=== PATIENT | female | born 1995 | race Caucasian/White ===

== ENCOUNTER → 2018-01-05 | Outpatient (REF) | payer BC ==
[2015-05-12 10:48] VITALS: BMI 28.3
[~2018-01-05] MED LIST: FERR-53 PO; HYDR-317 PO; IBUP800T37 PO; NO HOME MEDS; PREN-119 PO
== END ==
LOC: ZZSENDIN 11:45
PROVIDERS: ATTEND Obstetrics & Gynecology
DX: O60.00 Preterm labor without delivery, unspecified trimester (principal)
CPT/HCPCS: 82731

== ENCOUNTER 2018-01-13 18:53 | Emergency (ER) | payer BC ==
[2015-05-12 10:48] VITALS: Wt 81.6 kg
--- NOTE | 2018-01-13 19:02 | ER Report ---
History and Physical Time Seen By MD: 19:02 Hx. of Stated Complaint: Pain to right upper abdomen/rib cage radiates into back. Patient is 36 weeks HPI/ROS CHIEF COMPLAINT: chest pain HISTORY OF PRESENT ILLNESS: This is a 22 year old female. She is 35 week . Having pain in the right chest, in the ribs below the breast and sternal area. Radiates to her back near the shoulder blade. Worsens with deep breaths, somewhat with movement. No pain with eating. No pain in the abdomen. No fevers or chills. No cough. No nausea or vomiting. Has been having contractions on and off. No nausea or vomiting. No reflux problems. Frequent urination without dysuria. Normal bowels. Allergies: Coded Allergies: No Known Drug Allergies (Unverified , 01/13/18) Home Meds Reported Medications Calcium Carbonate (TUMS) 300 Mg Tab.chew, 300 MG PO, TAB.CHEW 01/13/18 Acetaminophen (TYLENOL) 325 Mg Tablet, 325 MG PO, TAB 01/13/18 Discontinued Reported Medications Hydrocodone/Acetaminophen (Lortab 5-325 mg Tablet) 1 Each Tablet, 1 PO Q4-6H Y for PAIN LORTAB PRN SINCE HOSP. VISIT FOR BACK PAIN 05/09. 05/11/15 Vit/Iron Fumarate/Fa ( VITAMIN TABLET) 1 Each Tablet, 1 EACH PO DAILY 05/11/15 Discontinued Scripts Ferrous Sulfate (FERROUS SULFATE) 325 Mg Tablet, 1 TAB PO DAILY, #90 TAB 1 Refill Prov:ALLY CHOUDHARY MD 05/13/15 Ibuprofen (IBUPROFEN) 800 Mg Tablet, 800 MG PO Q8H, #30 TAB 0 Refills Prov:ALLY CHOUDHARY MD 05/13/15 Reviewed Nurses Notes: Yes Hx Smoking: No Smoking Status: Never Smoker Exposure to Second Hand Smoke?: No Constitutional Vital Sign - Last 24 Hours 01/13/18 01/13/18 01/13/18 01/13/18 18:56 19:00 19:08 19:23 Pulse 71 71 66 Resp 16 24 26 B/P (MAP) 147/90 145/89 (107) Pulse Ox 96 96 95 O2 Delivery Room Air 01/13/18 01/13/18 01/13/18 01/13/18 19:30 19:38 19:53 20:00 Pulse 68 68 Resp 23 20 B/P (MAP) 129/93 (105) 111/68 (82) Pulse Ox 96 95 01/13/18 01/13/18 01/13/18 20:08 20:13 22:12 Pulse 76 70 85 Resp 22 23 16 B/P (MAP) 132/85 (101) Pulse Ox 94 95 95 O2 Delivery Room Air Physical Exam General Appearance: The patient is alert. No acute distress. Eyes: Pupils are equal, round. No pallor, injection or icterus. ENT: Mucous membranes are moist. Normal oral mucosa. Neck: Supple and non tender. No lymphadenopathy. Respiratory: Lungs are clear to auscultation. There are no retractions or accessory muscle use. Does have some reproduced pain with deep breaths. Cardiovascular: Regular rate and rhythm. No murmurs, gallops or rubs. Normal capillary refill. Gastrointestinal: Gravid size seems consistent with dates. Abdomen is soft and non tender. Nondistended. Normal active bowel sounds. No costovertebral angle tenderness with percussion. Neurological: Alert and oriented x3. Skin: Warm and dry. No rashes. Musculoskeletal: Some pain reproduced with palpation over the sternum, right ribs and back near shoulder blade. Full range of motion. No tenderness in palpation of the cervical, thoracic and lumbar spine. DIFFERENTIAL DIAGNOSIS: After history and physical exam, differential diagnosis was considered for chest pain including but not limited to cardiac causes, pulmonary embolus, chest wall pain, pleural inflammation and pulmonary infectious causes. Medical Decision Making Data Points Result Diagram: 01/13/18190401/13/181904 Laboratory Hematology Test 01/13/18 19:05 Red Blood Count 4.87 M/uL (4.17-5.56) Mean Corpuscular Volume 72.5 fL (80.0-96.0) Mean Corpuscular Hemoglobin 24.0 pg (26.0-33.0) Mean Corpuscular Hemoglobin Concent 33.2 g/dL (32.0-36.0) Red Cell Distribution Width 15.2 % (11.5-14.5) Mean Platelet Volume 9.3 fL (7.2-11.1) Neutrophils (%) (Auto) 69.3 % (39.4-72.5) Lymphocytes (%) (Auto) 24.2 % (17.6-49.6) Monocytes (%) (Auto) 5.9 % (4.1-12.4) Eosinophils (%) (Auto) 0.4 % (0.4-6.7) Basophils (%) (Auto) 0.2 % (0.3-1.4) Nucleated RBC Relative Count (auto) 0.1 /100WBC Neutrophils # (Auto) 6.2 K/uL (2.0-7.4) Lymphocytes # (Auto) 2.2 K/uL (1.3-3.6) Monocytes # (Auto) 0.5 K/uL (0.3-1.0) Eosinophils # (Auto) 0.0 K/uL (0.0-0.5) Basophils # (Auto) 0.0 K/uL (0.0-0.1) Nucleated RBC Absolute Count (auto) 0.01 K/uL Sodium Level 135 mmol/L (137-145) Potassium Level 3.7 mmol/L (3.5-5.0) Chloride Level 104 mmol/L (98-107) Carbon Dioxide Level 20 mmol/L (22-31) Blood Urea Nitrogen 5 mg/dl (7-18) Creatinine 0.60 mg/dl (0.52-1.04) Glomerular Filtration Rate Calc > 60.0 Random Glucose 100 mg/dl (75-110) Calcium Level 9.3 mg/dl (8.4-10.2) Total Bilirubin 0.6 mg/dl (0.2-1.3) Aspartate Amino Transf (AST/SGOT) 32 U/L (0-35) Alanine Aminotransferase (ALT/SGPT) 28 U/L (0-56) Alkaline Phosphatase 142 U/L (0-126) Troponin I < 0.012 ng/ml C-Reactive Protein 1.8 mg/dl (<1.0) Total Protein 7.4 g/dl (6.3-8.2) Albumin 4.0 g/dl (3.5-5.0) Chemistry Test 01/13/18 19:05 White Blood Count 8.9 k/uL (4.5-11.0) Red Blood Count 4.87 M/uL (4.17-5.56) Hemoglobin 11.7 g/dL (12.0-16.0) Hematocrit 35.3 % (34.0-47.0) Mean Corpuscular Volume 72.5 fL (80.0-96.0) Mean Corpuscular Hemoglobin 24.0 pg (26.0-33.0) Mean Corpuscular Hemoglobin Concent 33.2 g/dL (32.0-36.0) Red Cell Distribution Width 15.2 % (11.5-14.5) Platelet Count 287 K/uL (150-450) Mean Platelet Volume 9.3 fL (7.2-11.1) Neutrophils (%) (Auto) 69.3 % (39.4-72.5) Lymphocytes (%) (Auto) 24.2 % (17.6-49.6) Monocytes (%) (Auto) 5.9 % (4.1-12.4) Eosinophils (%) (Auto) 0.4 % (0.4-6.7) Basophils (%) (Auto) 0.2 % (0.3-1.4) Nucleated RBC Relative Count (auto) 0.1 /100WBC Neutrophils # (Auto) 6.2 K/uL (2.0-7.4) Lymphocytes # (Auto) 2.2 K/uL (1.3-3.6) Monocytes # (Auto) 0.5 K/uL (0.3-1.0) Eosinophils # (Auto) 0.0 K/uL (0.0-0.5) Basophils # (Auto) 0.0 K/uL (0.0-0.1) Nucleated RBC Absolute Count (auto) 0.01 K/uL Glomerular Filtration Rate Calc > 60.0 Calcium Level 9.3 mg/dl (8.4-10.2) Total Bilirubin 0.6 mg/dl (0.2-1.3) Aspartate Amino Transf (AST/SGOT) 32 U/L (0-35) Alanine Aminotransferase (ALT/SGPT) 28 U/L (0-56) Alkaline Phosphatase 142 U/L (0-126) Troponin I < 0.012 ng/ml C-Reactive Protein 1.8 mg/dl (<1.0) Total Protein 7.4 g/dl (6.3-8.2) Albumin 4.0 g/dl (3.5-5.0) EKG/Imaging EKG Interpretation 12 lead EKG: Rhythm: Normal sinus rhythm, rate 70 [place]: normal QRS: normal ST segments: normal Imaging CHEST SINGLE AP 01/13/2018 19:18 hours. HISTORY: Chest pain. . COMPARISON: CT chest, abdomen, and pelvis 06/08/2014. TECHNIQUE: Portable AP view of the chest. FINDINGS: Tubes/lines/hardware: There are external chest leads. Pulmonary: Lungs are clear. There is no pneumothorax or pleural effusion. Cardiomediastinal: Cardiac and mediastinal silhouettes are within normal limits. Bones/soft tissues: No acute osseous abnormality. The visible abdomen is normal. IMPRESSION: 1. No acute cardiopulmonary process. Report Dictated By: Rae Ernst at 01/13/2018 8:09 PM EXAMINATION: CTA of the chest with IV contrast HISTORY: Chest pain. COMPARISON: CT of the chest from 06/08/2014. Chest radiograph from the same day. TECHNIQUE: Pulmonary embolus protocol - Thin-slice axial imaging of the chest was performed during maximal pulmonary arterial opacification with intravenous nonionic iodinated contrast. 3D coronal slab MIPs and 2D reconstructions in the coronal and sagittal planes were performed to aid in pulmonary embolus detection. Insurance Writer images have been stored on PACS. CONTRAST: 75 mL of IV Isovue-370 One of the following dose optimization techniques was utilized in the performance of this exam: Automated exposure control; adjustment of the mA and/ or kV according to the patient's size; or use of an iterative reconstruction technique. Specific details can be referenced in the facility's radiology CT exam operational policy. FINDINGS: CTA CHEST: Please note that this exam is optimized for assessment of the pulmonary arteries and is not intended as a diagnostic study of the thoracic aorta, coronary arteries or venous structures. Angiographic Findings: Pulmonary arteries: There are no filling defects in the main, right, left, lobar , segmental or visualized sub-segmental branches of the pulmonary arterial system. Other vasculature: Negative. Additional non-angiographic findings: Lungs / Pleura: There is a 3.5 mm noncalcified pulmonary nodule in the left lung apex, slightly larger compared with previous examination. Mediastinum / Freda: Small sliding hiatal hernia. Heart / Pericardium: Mild pericardial fluid. Musculoskeletal / Body wall: Negative. Lymph node assessment: Negative. Upper abdomen: Gravid uterus. Partially visualized right renal collecting system appears at least mildly dilated. The right adrenal gland appears mildly thickened diffusely. Lower neck: Negative. IMPRESSION: No evidence of pulmonary embolism. Small sliding hiatal hernia. A 3.5 mm noncalcified pulmonary nodule at the left lung apex appears slightly larger compared with previous chest CT. Consider follow-up chest CT in 6-12 months to assess for stability or growth. Gravid uterus. Partially visualized right renal collecting system appears at least mildly dilated. The right adrenal gland is mildly diffusely thickened suggestive of adrenal hyperplasia. Report Dictated By: Ashok Patel MD at 01/13/2018 9:14 PM ED Course/Re-evaluation Clinical Indication for ER IV: IV Access ED Course Initial labs were unremarkable. Chest x-ray negative. Discussed these results. This is likely chest wall pain based on my exam however cannot entirely rule out pulmonary embolism at this point. We talked about the risks and benefits of doing CT scan. After our discussion, the patient is electing to go ahead with a CT scan of the chest. This was done and showed no signs of pulmonary embolism. There is a pulmonary nodule and some mild changes in the adrenal and renal collecting system, nonspecific and likely incidental or due to the . She will follow up with the women's clinic on Tuesday. I encouraged her to rest and increase her fluid intake over the weekend. Decision to Disposition Date: Jan 13, 2018 Decision to Disposition Time: 22:08 Depart Departure Latest Vital Signs Vital Signs Date Time Temp Pulse Resp B/P (MAP) Pulse Ox O2 Delivery O2 Flow Rate FiO2 01/13/18 22:12 85 16 132/85 (101) 95 Room Air Impression: Primary Impression: Chest wall pain Condition: Improved Disposition: HOME OR SELF-CARE Patient Instructions: Chest Wall Pain (ED) Additional Instructions: Increase fluid intake and rest over the weekend. Take Tylenol as needed for pain. Follow-up with the [facility] on Tuesday. CHOLO HOBBS MD Jan 13, 2018 19:02
[2018-01-13 19:31] LABS: PLATELET COUNT, AUTOMATED 287 K/uL (150-450)
--- NOTE | 2018-01-13 19:41 | EKG ---
FACILITY: [facility] PATIENT NAME: TEENA CARBALLO : [id number] MR: [id number] V: [id number] EXAM DATE: ORDERING PHYSICIAN: CHOLO HOBBS TECHNOLOGIST: SHELDON Altman Reason : CHEST PAIN Blood Pressure : / mmHG Vent. Rate : 070 BPM Atrial Rate : 070 BPM P-R Int : 120 ms QRS Dur : 086 ms QT Int : 380 ms P-R-T Axes : 020 051 015 degrees QTc Int : 410 ms Normal sinus rhythm with sinus arrhythmia Normal ECG No previous ECGs available Confirmed by SAMARIA NELSON ([id number]) on 01/13/2018 8:07:20 PM Referred By: Confirmed By:SAMARIA NELSON
--- NOTE | 2018-01-13 20:13 | RADIOLOGY IMAGING REPORT ---
[place] [facility] [place] NAME: Chloe Middleton : 1995 MR: [id number] V: [id number] EXAM DATE: ORDERING PHYSICIAN: CHOLO HOBBS TECHNOLOGIST: Location: [facility] - [place], [place] Patient: Chloe Middleton : 1995 Visit/Account:[id number] Date of Sevice: 01/13/2018 CHEST SINGLE AP 01/13/2018 19:18 hours. HISTORY: Chest pain. . COMPARISON: CT chest, abdomen, and pelvis 06/08/2014. TECHNIQUE: Portable AP view of the chest. FINDINGS: Tubes/lines/hardware: There are external chest leads. Pulmonary: Lungs are clear. There is no pneumothorax or pleural effusion. Cardiomediastinal: Cardiac and mediastinal silhouettes are within normal limits. Bones/soft tissues: No acute osseous abnormality. The visible abdomen is normal. IMPRESSION: 1. No acute cardiopulmonary process. Report Dictated By: Rae Ernst at 01/13/2018 8:09 PM Report E-Signed By: Rae Ernst at 01/13/2018 8:09 PM WSN:[id number]
[2018-01-13] MEDS ORDERED: IOPAMIDOL 76% 75 ML INFUS BTL 75 ML ONE (20:42)
[2018-01-13] MEDS ORDERED: NS(*) 0.9% 50 ML BAG 50 ML ONE (20:42)
--- NOTE | 2018-01-13 21:48 | RADIOLOGY IMAGING REPORT ---
FACILITY: [facility] - [place] PATIENT NAME: Chloe Middleton : 1995 MR: [id number] V: [id number] EXAM DATE: [id number] ORDERING PHYSICIAN: CHOLO HOBBS TECHNOLOGIST: Location: [facility] Patient: Chloe Middleton : 1995 Visit/Account:[id number] Date of Sevice: 01/13/2018 EXAMINATION: CTA of the chest with IV contrast HISTORY: Chest pain. COMPARISON: CT of the chest from 06/08/2014. Chest radiograph from the same day. TECHNIQUE: Pulmonary embolus protocol - Thin-slice axial imaging of the chest was performed during maximal pulmonary arterial opacification with intravenous nonionic iodinated contrast. 3D coronal sla b MIPs and 2D reconstructions in the coronal and sagittal planes were performed to aid in pulmonary e mbolus detection. Aircraft Technician images have been stored on PACS. CONTRAST: 75 mL of IV Isovue-370 One of the following dose optimization techniques was utilized in the performance of this exam: Autom ated exposure control; adjustment of the mA and/or kV according to the patient's size; or use of an i terative reconstruction technique. Specific details can be referenced in the facility's radiology C T exam operational policy. FINDINGS: CTA CHEST: Please note that this exam is optimized for assessment of the pulmonary arteries and is not intended as a diagnostic study of the thoracic aorta, coronary arteries or venous structures. Angiographic Findings: Pulmonary arteries: There are no filling defects in the main, right, left, lobar, segmental or visual ized sub-segmental branches of the pulmonary arterial system. Other vasculature: Negative. Additional non-angiographic findings: Lungs / Pleura: There is a 3.5 mm noncalcified pulmonary nodule in the left lung apex, slightly lar sandy compared with previous examination. Mediastinum / Freda: Small sliding hiatal hernia. Heart / Pericardium: Mild pericardial fluid. Musculoskeletal / Body wall: Negative. Lymph node assessment: Negative. Upper abdomen: Gravid uterus. Partially visualized right renal collecting system appears at least mi ldly dilated. The right adrenal gland appears mildly thickened diffusely. Lower neck: Negative. IMPRESSION: No evidence of pulmonary embolism. Small sliding hiatal hernia. A 3.5 mm noncalcified pulmonary nodule at the left lung apex appears slightly larger compared with pr evious chest CT. Consider follow-up chest CT in 6-12 months to assess for stability or growth. Gravid uterus. Partially visualized right renal collecting system appears at least mildly dilated. The right adrenal gland is mildly diffusely thickened suggestive of adrenal hyperplasia. Report Dictated By: Ashok Patel MD at 01/13/2018 9:14 PM Report E-Signed By: Ashok Patel MD at 01/13/2018 9:43 PM [id number]
[2018-01-13 22:12] VITALS: BP 132/85
[2018-01-13] MEDS ORDERED: ACET-1966 PO (22:52)
[2018-01-13] MEDS ORDERED: CALC-521 PO (22:52)
== END 2018-01-13 22:16 | disposition home or self-care (01) ==
LOC: ER 19:08
DX: R07.89 Other chest pain (principal); Z79.899 Other long term (current) drug therapy
CPT/HCPCS: 71045; 71275; 84484; 85025; 86140; 93005; 99285; J7050; Q9967; 82040; 82247; 82310; 82374; 82435; 82565; 82947; 84075; 84132; 84155; 84295; 84450; 84460; 84520

== ENCOUNTER 2018-01-13 22:19 | Outpatient (CLI) | payer BC ==
[~2018-01-13] VITALS: Ht 160 cm; Wt 81.6 kg
[2018-01-13] MEDS ORDERED: LR(*) 1000 ML BAG 1,000 ML IV PRN (22:21)
[2018-01-13 22:30] VITALS: BP 132/81
[2018-01-13] MEDS ORDERED: CALC-521 PO (22:52)
[2018-01-13] MEDS ORDERED: ACET-1966 PO (22:52)
[2018-01-13 22:53] VITALS: Ht 160 cm; Wt 81.6 kg
[2018-01-13] MEDS ORDERED: FAMOTIDINE 20 MG TAB PO ONE (23:25)
[2018-01-13] MEDS ORDERED: ACETAMINOPHEN 500 MG TAB PO ONE (23:25)
[2018-01-14 00:47] VITALS: BP 133/73
== END 2018-01-14 00:34 | disposition home or self-care (01) ==
LOC: L&D 22:19 → UNDOADMOB 22:19 → INTOOBSV 22:19 → OB 22:19 → UNDODISOB 01-14 00:34 → L&D 01-14 00:34
PROVIDERS: ATTEND Obstetrics & Gynecology
DX: O26.893 Other specified pregnancy related conditions, third trimester (principal); Z3A.36 36 weeks gestation of pregnancy
CPT/HCPCS: 99213; G0378; G0379

== ENCOUNTER → 2018-01-26 | Outpatient (REF) | payer BC ==
[2018-01-13 22:53] VITALS: BMI 31.9
[~2018-01-26] MED LIST changes: +ACET-1966 PO; +CALC-521 PO
== END ==
LOC: ZZSENDIN 12:35
PROVIDERS: ATTEND Physician Assistant
DX: O42.90 Premature rupture of membranes, unspecified as to length of time between rupture and onset of labor, unspecified weeks of gestation (principal)
CPT/HCPCS: 84112

== ENCOUNTER 2018-01-27 19:24 | Observation (INO) | payer BC ==
[2018-01-13 22:53] VITALS: BMI 31.9
[2018-01-27] MEDS ORDERED: FAMOTIDINE(*) 20MG/50ML PREMIX 50 ML IVPB PRN (20:02)
[2018-01-27] MEDS ORDERED: OXYTOCIN 30 UNIT/D5LR 500 ML 500 ML IV PRN (20:02)
[2018-01-27] MEDS ORDERED: ceFAZolin(*) 2GM/D5W 50ML 50 ML IVPB PRN (20:02)
[2018-01-27] MEDS ORDERED: fentaNYL CITR 100 MCG/2 ML AMP IVP PRN (20:05)
[2018-01-27] MEDS ORDERED: METOCLOPRAMIDE 10 MG/2 ML SDV IVP PRN (20:05)
[2018-01-27] MEDS ORDERED: LIDOCAINE 1% LOCAL 300 MG/30ML INJ PRN (20:05)
[2018-01-27] MEDS ORDERED: cefOXitin/DEX(*) 2GM/50ML PREM 50 ML IVPB PRN (20:05)
[2018-01-27] MEDS ORDERED: LIDOCAINE/SOD BICARB 8.4% SYR SC PRN (20:05)
[2018-01-27] MEDS ORDERED: OXYTOCIN 30 UNIT/D5LR 500 ML 500 ML ONE (20:21)
[2018-01-27] MEDS ORDERED: LR(*) 1000 ML BAG 2,000 ML ONE (20:21)
[2018-01-27] MEDS: LR(*) 1000 ML BAG 1,000 ML IV SCH (20:24)
[2018-01-27 20:26] LABS: PLATELET COUNT, AUTOMATED 275 K/uL (150-450)
[2018-01-27 20:30] VITALS: BP 116/73
[2018-01-27] MEDS ORDERED: PENICILLIN G 5 MILLUN/100 ML 100 ML IVPB ONE (20:30)
[2018-01-27] MEDS ORDERED: TERBUTALINE SULF 1 MG/ML VIAL SC ONE (22:35)
[2018-01-28] MEDS ORDERED: PENICILLIN G 2.5 MILLUN/100 ML 100 ML IVPB SCH
[2018-01-28] MEDS: LR(*) 1000 ML BAG 1,000 ML IV SCH ×2 (02:56→06:56)
[2018-01-28] MEDS: PENICILLIN G 2.5 MILLUN/100 ML 100 ML IVPB SCH ×2 (03:36→08:05)
[2018-01-28] MEDS ORDERED: PREN-127 PO (03:51)
--- NOTE | 2018-01-28 09:14 | History & Physical ---
History of Present Illness Age of Patient: 22 : 2 Para or TPAL: 1001 EDC per LMP: Feb 15, 2018 EDC per U/S: Feb 11, 2018 Estimated Gestational Age: 37.3 Chief Complaint Pelvic pressure. History of Present Illness Admitted in early term with pelvic pressure, and found to have contractions Q 2- 3 minutes on monitor. Observed overnight, and started on IV Pen G protocol, since it appeared that she was in labor with +GBS screen. After there was no cervical change (after initial exam of 5 cm) over a few hours, she was given a single dose of Terbutaline 0.25 mg subcutaneously. Contractions ceased, and re mained only occasional overnight.She's now feeling some pelvic pressure and some contractions, but monitoring shows no significant uterine activity. No complications of this . record reviewed. History Patient's Blood Type: B Positive Rubella Status: Immune Group B Strep Screen: Positive (01/12/18) Obstetrical History: Previous term uncomplicated vaginal . Past Medical History: Unremarkable. Allergies: Coded Allergies: No Known Drug Allergies (Unverified , 01/13/18) Social History: Single, FOC present and supportive. Works at [employer]. Denies use of tobacco, alcohol, or illicit drugs. Med Rec Home Meds Discontinued Reported Medications Vits W-Ca,Fe,Fa(<1MG) ( VITAMINS) 1 Each Tablet, 1 EACH PO DAILY, TAB 01/28/18 Calcium Carbonate (TUMS) 300 Mg Tab.chew, 300 MG PO, TAB.CHEW 01/13/18 Acetaminophen (TYLENOL) 325 Mg Tablet, 325 MG PO, TAB 01/13/18 Review of Systems All Systems Reviewed/Normal: Yes, Except as Noted Exam General Exam Vital Signs Vital Signs Date Time Temp Pulse Resp B/P (MAP) Pulse Ox O2 Delivery O2 Flow Rate FiO2 01/27/18 20:30 97.8 61 14 116/73 (87) General Apperance: Alert/Awake/No Acute Distress (although she notes contraction pain is up to 9/10) Neuro: No Gross deficits Eyes: Normal Extraocular Movement & Vison ENT: Normal, Moist Mucous Membranes Neck: No Masses Cardiovascular: Regular Rate and Rhythm Respiratory: No Respiratory Distress, Clear to Auscultation Abdomen: Gravid - Non-Tender : Normal; No CVA Tenderness Musculoskeletal: No Weakness/Pain Extremities: No Cyanosis,Clubbing or Edema, Reflexes (2+/4 and symmetric); No Tender Calves Integumentary: Skin Intact without Lesions or Rash Psychological: Alert & Oriented X3, Appropriate Mood & Affect Cervical Dialation: 4.5 Cervical Effacement (%): 60 Cervical Consistency: Soft Cervical Position: Posterior Station: -3 Presentation: Vertex Fetus Heart Tones: 140 Heart Tone Variabilty: Moderate FHT Accelerations: Present FHT Decelerations: None FHT Category: I Medical Decision Making Data Points Result Diagram: 01/27/182017 VTE Prophylasis: Adult Pharmacological Contraindicati: Pt at Low Risk for VTE Mechanical Contraindications: Pt at Low Risk for VTE Assessment and Plan Problems: (1) False labor after 37 weeks of gestation without delivery Assessment & Plan: Patient feels OK in being discharged home. Discussed labor precautions. She lives only a few minutes from the hospital. She will keep her appointment at [facility] in the coming week. (2) with 37 weeks completed gestation Copies to: ALLY CHOUDHARY MD ; ARIC TESFAYE MD Jan 28, 2018 08:58
== END 2018-01-28 08:58 | disposition home or self-care (01) ==
LOC: OB 19:24 → UNDODISOB 01-28 08:58
PROVIDERS: ADMIT Obstetrics & Gynecology; ATTEND Obstetrics & Gynecology
DX: O47.1 False labor at or after 37 completed weeks of gestation (principal); Z3A.37 37 weeks gestation of pregnancy
CPT/HCPCS: 36415; 85025; 86850; 86900; 86901; 96372; G0378; G0379; J2540; J3105; J7120

== ENCOUNTER 2018-02-01 05:24 | Inpatient (IN) | payer BC ==
[~2018-02-01] VITALS: Ht 160 cm; Wt 81.6 kg
[~2018-02-01 05:24] MED LIST changes: +PREN-127 PO
[2018-02-01] MEDS ORDERED: PENICILLIN G 5 MILLUN/100 ML 100 ML IVPB ONE (05:25)
[2018-02-01] MEDS ORDERED: FAMOTIDINE(*) 20MG/50ML PREMIX 50 ML IVPB PRN (05:25)
[2018-02-01] MEDS ORDERED: LIDOCAINE/SOD BICARB 8.4% SYR SC PRN (05:25)
[2018-02-01] MEDS ORDERED: LR(*) 1000 ML BAG 1,000 ML IV PRN ×2 (05:25→08:50)
[2018-02-01] MEDS ORDERED: cefOXitin/DEX(*) 2GM/50ML PREM 50 ML IVPB PRN (05:25)
[2018-02-01] MEDS ORDERED: fentaNYL CITR 100 MCG/2 ML AMP IVP PRN (05:25)
[2018-02-01] MEDS ORDERED: OXYTOCIN 30 UNIT/D5LR 500 ML 500 ML IV PRN (05:25)
[2018-02-01] MEDS ORDERED: METOCLOPRAMIDE 10 MG/2 ML SDV IVP PRN (05:25)
[2018-02-01] MEDS ORDERED: ACETAMINOPHEN 500 MG TAB PO PRN (05:25)
[2018-02-01] MEDS ORDERED: TERBUTALINE SULF 1 MG/ML VIAL SUBQ PRN (05:25)
[2018-02-01] MEDS ORDERED: ONDANSETRON 4 MG/2 ML VIAL IVP PRN (05:25)
[2018-02-01] MEDS ORDERED: LIDOCAINE 1% LOCAL 300 MG/30ML INJ PRN (05:25)
[2018-02-01 06:10] VITALS: BP 142/76; Ht 160 cm; Wt 81.6 kg
[2018-02-01 06:29] LABS: PLATELET COUNT, AUTOMATED 215 K/uL (150-450)
[2018-02-01] MEDS ORDERED: PREN-127 PO (08:08)
[2018-02-01] MEDS ORDERED: BUPIVACAINE 0.25% MPF INJ EPI PRN (08:50)
[2018-02-01] MEDS ORDERED: FENTANYL/ROPIVACAINE 100 ML BAG EPI PRN (08:50)
[2018-02-01] MEDS ORDERED: LIDOCAINE/PF 2% 200MG/10ML AMP 200 MG/10 ML AMPUL EPI PRN (08:50)
[2018-02-01] MEDS ORDERED: fentaNYL CITR 100 MCG/2 ML AMP IT PRN (08:50)
[2018-02-01] MEDS ORDERED: BUPIVACAINE 0.5% INJ 30ML VIAL EPI PRN (08:50)
[2018-02-01] MEDS ORDERED: LIDO/EPI 2% MPF 1:200,000 20ML EPI PRN (08:50)
[2018-02-01] MEDS ORDERED: EPIDURAL KEYS XX PRN (09:00)
[2018-02-01] MEDS ORDERED: PENICILLIN G 2.5 MILLUN/100 ML 100 ML IVPB SCH (10:00)
--- NOTE | 2018-02-01 10:37 | History & Physical ---
History of Present Illness Age of Patient: 22 : 2 Para or TPAL: 1 EDC per LMP: Feb 15, 2018 Estimated Gestational Age: 38.0 Chief Complaint IOL History of Present Illness Presents for planned IOL due to LGA, GBS positive and advanced dilation. Presented to clinic yesterday with normal pressures and no proteinuria but history of LGA baby (92%ile on 01/19/18) and advanced dilation (5cm). also complicated by threatened PTL and prior mild bilateral hydronephrosis that remained stable. She had MFM consult and was recommended to evaluate the . Upon arrival here here pressures were mildly elevated and pre-ecl ampsia labs done showing mild elevation in her liver enzymes, normal platelets, no proteinuria on spot check. Past Medical, Surgical, Family and Obstetric Histories reviewed. Please see ACOG chart. History Patient's Blood Type: B Positive Rubella Status: Immune Group B Strep Screen: Positive Obstetrical History: as per HPI; otherwise prior at 38 weeks, 6#15oz. Past Medical History: neg Allergies: Coded Allergies: No Known Drug Allergies (Unverified , 01/13/18) Social History: Single, FOC present and supportive. Works at [employer]. Denies use of tobacco, alcohol, or illicit drugs. Med Rec Home Meds Reported Medications Vits W-Ca,Fe,Fa(<1MG) ( VITAMINS) 1 Each Tablet, 1 EACH PO DAILY, TAB 02/01/18 Discontinued Reported Medications Vits W-Ca,Fe,Fa(<1MG) ( VITAMINS) 1 Each Tablet, 1 EACH PO DAILY, TAB 01/28/18 Calcium Carbonate (TUMS) 300 Mg Tab.chew, 300 MG PO, TAB.CHEW 01/13/18 Acetaminophen (TYLENOL) 325 Mg Tablet, 325 MG PO, TAB 01/13/18 Review of Systems All Systems Reviewed/Normal: Yes, Except as Noted Exam General Exam Vital Signs Vital Signs Date Time Temp Pulse Resp B/P (MAP) Pulse Ox O2 Delivery O2 Flow Rate FiO2 02/01/18 06:10 97.2 87 22 142/76 (98) 97 Room Air General Apperance: Alert/Awake/No Acute Distress Neuro: No Gross deficits Eyes: Normal Extraocular Movement & Vison Cardiovascular: Regular Rate and Rhythm Respiratory: No Respiratory Distress Abdomen: Soft, Non-Tender, Non-Distended, Gravid - Non-Tender Extremities: No Cyanosis,Clubbing or Edema Integumentary: Skin Intact without Lesions or Rash Psychological: Alert & Oriented X3, Appropriate Mood & Affect Vaginal Discharge/Fluid?: Bloody Show, Clear Fluid (on AROM; large amount) Cervical Dialation: 6 Cervical Effacement (%): 100 Cervical Consistency: Soft Cervical Position: Anterior Station: -2 Presentation: Vertex Uterine Contractions(Q min): 3 Uterine Contraction Strength: Moderate Fetus Heart Tone Variabilty: Moderate FHT Accelerations: 15X15 FHT Decelerations: None FHT Category: I Medical Decision Making Data Points Result Diagram: 02/01/18 0610 02/01/18 0610 Hematology Test 02/01/18 06:10 02/01/18 06:30 Red Blood Count 4.66 M/uL (4.17-5.56) Mean Corpuscular Volume 72.2 fL (80.0-96.0) Mean Corpuscular Hemoglobin 23.6 pg (26.0-33.0) Mean Corpuscular Hemoglobin Concent 32.7 g/dL (32.0-36.0) Red Cell Distribution Width 15.7 % (11.5-14.5) Mean Platelet Volume 9.3 fL (7.2-11.1) Neutrophils (%) (Auto) 64.9 % (39.4-72.5) Lymphocytes (%) (Auto) 27.8 % (17.6-49.6) Monocytes (%) (Auto) 5.7 % (4.1-12.4) Eosinophils (%) (Auto) 1.2 % (0.4-6.7) Basophils (%) (Auto) 0.4 % (0.3-1.4) Nucleated RBC Relative Count (auto) 0.3 /100WBC Neutrophils # (Auto) 5.6 K/uL (2.0-7.4) Lymphocytes # (Auto) 2.4 K/uL (1.3-3.6) Monocytes # (Auto) 0.5 K/uL (0.3-1.0) Eosinophils # (Auto) 0.1 K/uL (0.0-0.5) Basophils # (Auto) 0.0 K/uL (0.0-0.1) Nucleated RBC Absolute Count (auto) 0.02 K/uL Peripheral Blood Smear No Y/N Sodium Level 135 mmol/L (137-145) Potassium Level 4.1 mmol/L (3.5-5.0) Chloride Level 104 mmol/L (98-107) Carbon Dioxide Level 22 mmol/L (22-31) Blood Urea Nitrogen 8 mg/dl (7-18) Creatinine 0.60 mg/dl (0.52-1.04) Glomerular Filtration Rate Calc > 60.0 Random Glucose 66 mg/dl (75-110) Uric Acid 6.0 mg/dl (2.5-7.5) Calcium Level 9.1 mg/dl (8.4-10.2) Total Bilirubin 0.5 mg/dl (0.2-1.3) Aspartate Amino Transf (AST/SGOT) 45 U/L (0-35) Alanine Aminotransferase (ALT/SGPT) 58 U/L (0-56) Alkaline Phosphatase 137 U/L (0-126) Lactate Dehydrogenase 501 U/L (0-590) Total Protein 6.3 g/dl (6.3-8.2) Albumin 3.4 g/dl (3.5-5.0) HIV (1&2) Antibody Negative (NEGATIVE) Urine Color [place] Urine Clarity Cloudy Urine pH 6.0 pH (4.8-9.5) Urine Specific [place] 1.018 Urine Protein 30 mg/dL (NEGATIVE) Urine Glucose (UA) Negative mg/dL (NEGATIVE) Urine Ketones Negative mg/dL (NEGATIVE) Urine Blood Negative (NEGATIVE) Urine Nitrite Negative (NEGATIVE) Urine Bilirubin Negative (NEGATIVE) Urine Urobilinogen 2.0 mg/dL (0.2-1.9) Urine Leukocyte Esterase Large (NEGATIVE) Urine RBC 9 /HPF (0-2/HPF) Urine WBC 61 /HPF (0-5/HPF) Urine Squamous Epithelial Cells Many /LPF (</=FEW) Urine Bacteria Few /HPF (NONE-FEW) Urine Mucus Few /HPF (NONE-FEW) Urine Random Creatinine 181.2 mg/dl Urine Random Total Protein 17 mg/dl (<11) Chemistry Test 02/01/18 06:10 02/01/18 06:30 White Blood Count 8.6 k/uL (4.5-11.0) Red Blood Count 4.66 M/uL (4.17-5.56) Hemoglobin 11.0 g/dL (12.0-16.0) Hematocrit 33.6 % (34.0-47.0) Mean Corpuscular Volume 72.2 fL (80.0-96.0) Mean Corpuscular Hemoglobin 23.6 pg (26.0-33.0) Mean Corpuscular Hemoglobin Concent 32.7 g/dL (32.0-36.0) Red Cell Distribution Width 15.7 % (11.5-14.5) Platelet Count 215 K/uL (150-450) Mean Platelet Volume 9.3 fL (7.2-11.1) Neutrophils (%) (Auto) 64.9 % (39.4-72.5) Lymphocytes (%) (Auto) 27.8 % (17.6-49.6) Monocytes (%) (Auto) 5.7 % (4.1-12.4) Eosinophils (%) (Auto) 1.2 % (0.4-6.7) Basophils (%) (Auto) 0.4 % (0.3-1.4) Nucleated RBC Relative Count (auto) 0.3 /100WBC Neutrophils # (Auto) 5.6 K/uL (2.0-7.4) Lymphocytes # (Auto) 2.4 K/uL (1.3-3.6) Monocytes # (Auto) 0.5 K/uL (0.3-1.0) Eosinophils # (Auto) 0.1 K/uL (0.0-0.5) Basophils # (Auto) 0.0 K/uL (0.0-0.1) Nucleated RBC Absolute Count (auto) 0.02 K/uL Peripheral Blood Smear No Y/N Glomerular Filtration Rate Calc > 60.0 Uric Acid 6.0 mg/dl (2.5-7.5) Calcium Level 9.1 mg/dl (8.4-10.2) Total Bilirubin 0.5 mg/dl (0.2-1.3) Aspartate Amino Transf (AST/SGOT) 45 U/L (0-35) Alanine Aminotransferase (ALT/SGPT) 58 U/L (0-56) Alkaline Phosphatase 137 U/L (0-126) Lactate Dehydrogenase 501 U/L (0-590) Total Protein 6.3 g/dl (6.3-8.2) Albumin 3.4 g/dl (3.5-5.0) HIV (1&2) Antibody Negative (NEGATIVE) Urine Color [place] Urine Clarity Cloudy Urine pH 6.0 pH (4.8-9.5) Urine Specific [place] 1.018 Urine Protein 30 mg/dL (NEGATIVE) Urine Glucose (UA) Negative mg/dL (NEGATIVE) Urine Ketones Negative mg/dL (NEGATIVE) Urine Blood Negative (NEGATIVE) Urine Nitrite Negative (NEGATIVE) Urine Bilirubin Negative (NEGATIVE) Urine Urobilinogen 2.0 mg/dL (0.2-1.9) Urine Leukocyte Esterase Large (NEGATIVE) Urine RBC 9 /HPF (0-2/HPF) Urine WBC 61 /HPF (0-5/HPF) Urine Squamous Epithelial Cells Many /LPF (</=FEW) Urine Bacteria Few /HPF (NONE-FEW) Urine Mucus Few /HPF (NONE-FEW) Urine Random Creatinine 181.2 mg/dl Urine Random Total Protein 17 mg/dl (<11) Urinalysis Test 02/01/18 06:30 Urine Color [place] Urine Clarity Cloudy Urine pH 6.0 pH (4.8-9.5) Urine Specific [place] 1.018 Urine Protein 30 mg/dL (NEGATIVE) Urine Glucose (UA) Negative mg/dL (NEGATIVE) Urine Ketones Negative mg/dL (NEGATIVE) Urine Blood Negative (NEGATIVE) Urine Nitrite Negative (NEGATIVE) Urine Bilirubin Negative (NEGATIVE) Urine Urobilinogen 2.0 mg/dL (0.2-1.9) Urine Leukocyte Esterase Large (NEGATIVE) Urine RBC 9 /HPF (0-2/HPF) Urine WBC 61 /HPF (0-5/HPF) Urine Squamous Epithelial Cells Many /LPF (</=FEW) Urine Bacteria Few /HPF (NONE-FEW) Urine Mucus Few /HPF (NONE-FEW) Urine Random Creatinine 181.2 mg/dl Urine Random Total Protein 17 mg/dl (<11) VTE Prophylasis: Adult Deep Vein Thrombosis/Pulmonary: No Pharmacological Contraindicati: Pt at Low Risk for VTE Mechanical Contraindications: Pt at Low Risk for VTE Assessment and Plan Problems: (1) LGA (large for gestational age) fetus affecting management of mother (2) Gestational [-induced] hypertension without significant proteinuria, complicating childbirth Assessment & Plan: Monitoring pressures. IOL to proceed with pitocin. (3) 38 weeks gestation of Status: Resolved (4) Group B streptococcal carriage complicating Assessment & Plan: Penicillin prophylaxis Problem Qualifiers (1) LGA (large for gestational age) fetus affecting management of mother: Fetus number: single or unspecified fetus Trimester: third trimester Qualified Codes: O36.63X0 - Maternal care for excessive growth, third trimester, not applicable or unspecified ALLY CHOUDHARY MD Feb 01, 2018 10:37
--- NOTE | 2018-02-01 11:59 | Anesthesia OB Pre-Anes Eval ---
History of Present Illness Anesthesia Start Time: 10:48 OB Anesthesia Diagnosis: induction - medical EDC: Feb 15, 2018 : 2 Para: 1 Pain Ratin Heart Tones: 148 Result Diagram: 02/01/18 0610 02/01/18 0610 Height (Inches): 63.00 Weight (Pounds): 180 BMI Calculated: 31.88 Past Medical History Medical History: no pertinent history Surgical History: no surgical history Previous Anesthesia: epidural Attended Childbirth Classes?: No Hx Anesthesia Reactions: No Hx Family Anesthesia Reaction: No Current Medications: pitocin Home Meds Reported Medications Vits W-Ca,Fe,Fa(<1MG) ( VITAMINS) 1 Each Tablet, 1 EACH PO DAILY, TAB 02/01/18 Discontinued Reported Medications Vits W-Ca,Fe,Fa(<1MG) ( VITAMINS) 1 Each Tablet, 1 EACH PO DAILY, TAB 01/28/18 Calcium Carbonate (TUMS) 300 Mg Tab.chew, 300 MG PO, TAB.CHEW 01/13/18 Acetaminophen (TYLENOL) 325 Mg Tablet, 325 MG PO, TAB 01/13/18 Allergies: Coded Allergies: No Known Drug Allergies (Unverified , 01/13/18) Anesthesia OB ROS Neurological: No migraines/headaches, No seizures, No neuropathy, No other ENT: Denies Tooth caps, Denies Loose teeth, Denies Chipped teeth, Denies Dentures, Denies Bridges, Denies Retainers, Denies Veneers, Denies Implants, Denies Tongue ring, Denies Other Pulmonary: No asthma, No smoker (pks/day/yrs), No other Airway Class: ll Cardiovascular ROS: No edema, No arrhythmia, No other GI ROS: clear liquids Last Solids Date: Jan 31, 2018 Last Solids Time: 18:00 ROS: No Herpes, No STD(s), No Liver Disease, No Renal Disease, No Other Endocrine ROS: No diabetes, No gestational diabetes, No thyroid disorder, No other Musculoskeletal ROS: No low back pain, No low back injury, No scoliosis, No other ASA Classification: 2 Assessment and Plan Anesthesia Plan: BRAYDEN ADAMS CRNA Feb 01, 2018 11:59
--- NOTE | 2018-02-01 12:03 | Procedure Note ---
Anesthetic Placement Note Anesthesia Plan: LEB Permit for Anesthesia Signed: Yes Anesthesia Technique: Patient Sitting Anesthesia Prep: Chlorhexidine Interspace: L 4-5 Local Anesthetic: 1% Lidocaine, 25 Gauge Needle Amount Local - cc's: 3 Anesthesia Needle: 17g Touhy/Schliff Anesthesia Attempts: 1 Loss of Resistance: Normal Saline Depth of CHELSEY (cm): 8 Epidural Needle Placement: No CSF, No Blood, No Parasthesia Catheter Insertion (cm): 14 Catheter Type: Maciel - Spring Wound Epidural Dressing: Tegaderm, Tape, Adhesive [place] Anesthesia Tray: Lot Number ([id number]), Expiration Date (2019-01-27), Reference Number ([id number]) Anesthesia Medications: Epidural Test Dose: 1.5 Lido/Epi (1:200,000), Dose - mL (3), Time (1115), Negative Epidural Loading Dose: 0.25% Marcaine, Dose - ml (10), Time (1125) Epidural Infusion: 0.2% Ropivicaine, With Fentanyl 2mcg/ml, Start Time: (1128) Epidural Pump Setting: Bolus Dose - mL (5), Lockout - Minutes (20), Maintenance Rate - mL/hr (10), Maximum per Hour - mL (25) Complications: None BRAYDEN SALDANA CRNA Feb 01, 2018 12:03
[2018-02-01] MEDS ORDERED: INFLUENZA VIRUS VAC 0.5 ML SYR IM ONLY ONE (12:50)
[2018-02-01] MEDS ORDERED: GLYCERIN/WITCH HAZEL LEAF 1 PK TP PRN (12:50)
[2018-02-01] MEDS ORDERED: BENZOCAINE 20% 60 ML BTL TP PRN (12:50)
[2018-02-01] MEDS ORDERED: APAP/HYDROCODONE 325/7.5 TAB PO PRN (12:50)
[2018-02-01] MEDS ORDERED: MAGNESIUM HYDROXIDE* 30ML UDCP PO PRN (12:50)
[2018-02-01] MEDS ORDERED: LANOLIN OINT 7 GM TUBE TP PRN (12:50)
[2018-02-01] MEDS ORDERED: HYDROCORTISONE 2.5% CR 30GM TB PR PRN (12:50)
--- NOTE | 2018-02-01 12:55 | Anesthesia Progress Note ---
Progress/Maintenance Anesthesia Note Time: 12:45 Pump: Off Assessment and Plan Anesthesia Plan: LEB Assessment Viable . Epidural pump stopped. Catheter intact until convenient time for removal. Anesthesia Stop Time: 12:45 BRAYDEN SALDANA [employer] SUPERVISOR Feb 01, 2018 12:55
--- NOTE | 2018-02-01 12:55 | OB Delivery Note ---
Delivery Note Vaginal Delivery Type: Spont. Vaginal Delivery Delivery Date: Feb 01, 2018 Delivery Time: 12:51 Estimated Gestational Age(wks): 38.0 Delivery Anesthesia: Epidural Sex: Male Infant Weight (gms): 3625 [place] Apgars: 1 Minute (8q), 5 Minute (9q) Repair Needed: Laceration, 2nd Degree Estimated Blood Loss: 100 Delivery Complications: Laceration Notes: Admitted for IOL at term with favorable cervix and gestational hypertension. Progressed from 5 cm on admission to 6 cm by 1023 with AROM. Further progression after epidural to 9 cm by 1200 and complete/2+ by 1212. Scalp electrode placed for deep variable decelerations with contractions and O2 administered between pushes. Perineum stabilized while the head delivered over a second degree laceration. No complications. Repair with 2-0 chromic without complication. Belting Cutter in Attendence: No Copies to: ALLY CHOUDHARY MD ; ALLY CHOUDHARY MD Feb 01, 2018 12:55
[2018-02-01] MEDS: IBUPROFEN 800 MG TAB PO SCH ×2 (14:23→21:34)
[2018-02-01 14:45] VITALS: BP 135/82
[2018-02-01 19:50] VITALS: BP 130/82
[2018-02-01] MEDS: DOCUSATE CALCIUM 240 MG CAP PO SCH (21:34)
[2018-02-01 22:25] VITALS: BP 137/80
[2018-02-02] MEDS ORDERED: PENICILLIN G 2.5 MILLUN/100 ML 100 ML IVPB SCH (02:00)
[2018-02-02 03:00] VITALS: BP 115/62
[2018-02-02] MEDS: IBUPROFEN 800 MG TAB PO SCH ×2 (05:56→14:15)
--- NOTE | 2018-02-02 08:00 | OB/GYN Progress Note ---
OB Subjective Progress Notes Subjective Doing well and improving. Bleeding lochia normal. No headache. GI: NEG Nausea : Voiding Well Pain: Mild OB Objective Physical Exam Vital Signs Date Time Temp Pulse Resp B/P (MAP) Pulse Ox O2 Delivery O2 Flow Rate FiO2 02/02/18 03:00 97.2 62 16 115/62 (79) 96 Room Air Intake and Output 02/02/18 06:59 Intake Total 2189 ml Output Total 1350 ml Balance 839 ml Intake IV Total 2189 ml Output Urine Total 1350 ml # Voids 2 General Appearance: Alert/Awake/No Acute Distress Neurological: No Gross deficits Eyes: Normal Extraocular Movement & Vison Cardiovascular: Normal Rhythm & Peripheral Pulses, Regular Rate and Rhythm Respiratory: No Respiratory Distress, Clear to Auscultation Abdomen: Soft, Non-Tender, Non-Distended, Fundus Firm, Non-Tender Extremities: No Cyanosis,Clubbing or Edema Integumentary: Skin Intact without Lesions or Rash Psychological: Alert & Oriented X3, Appropriate Mood & Affect Result Diagram: 02/02/18 0545 02/01/18 0610 Assessment and Plan ANCHORMAN Plan: Routine Post- Care Problems: (1) LGA (large for gestational age) fetus affecting management of mother (2) Gestational [-induced] hypertension without significant proteinuria, complicating childbirth Assessment & Plan: BP stable and normal. Will check CMP again this AM to see if her liver enzymes have improved. No RUQ pain to palpate. (3) 38 weeks gestation of Status: Resolved (4) Group B streptococcal carriage complicating (5) care and examination immediately after delivery Assessment & Plan: If continues well, may go home today. Problem Qualifiers (1) LGA (large for gestational age) fetus affecting management of mother: Fetus number: single or unspecified fetus Trimester: third trimester Qualified Codes: O36.63X0 - Maternal care for excessive growth, third trimester, not applicable or unspecified ALLY CHOUDHARY MD Feb 02, 2018 08:00
[2018-02-02] MEDS ORDERED: IBUP800T37 PO (08:03)
[2018-02-02 08:05] VITALS: BP 142/76
--- NOTE | 2018-02-02 08:05 | OB/GYN Discharge Summary ---
Discharge Summary Reason for Hosp/Final Diag: (1) LGA (large for gestational age) fetus affecting management of mother (2) Gestational [-induced] hypertension without significant proteinuria, complicating childbirth (3) 38 weeks gestation of Status: Resolved (4) Group B streptococcal carriage complicating (5) care and examination immediately after delivery Lates Vital Signs Vital Signs Date Time Temp Pulse Resp B/P (MAP) Pulse Ox O2 Delivery O2 Flow Rate FiO2 02/02/18 03:00 97.2 62 16 115/62 (79) 96 Room Air Weight (Pounds): 180 Result Diagram: 02/02/18 0545 02/01/18 0610 Condition: Improved Discharge: Home, Self Mcfp Meds Reported Medications Vits W-Ca,Fe,Fa(<1MG) ( VITAMINS) 1 Each Tablet, 1 EACH PO DAILY, TAB 02/01/18 Discontinued Reported Medications Vits W-Ca,Fe,Fa(<1MG) ( VITAMINS) 1 Each Tablet, 1 EACH PO DAILY, TAB 01/28/18 Calcium Carbonate (TUMS) 300 Mg Tab.chew, 300 MG PO, TAB.CHEW 01/13/18 Acetaminophen (TYLENOL) 325 Mg Tablet, 325 MG PO, TAB 01/13/18 Follow up Referrals: MISSION MANAGER - In 6 Weeks @ [facility] with ALLY COOL MD Follow up with: Dr. Cool [phone] Follow up in: 6 wks PP or PO Discharge Diet: As Tolerates Discharge Activity: As Tolerates, No Heavy Lifting x 6 wks, No Heavy Lifting > 10lb, Pelvic Rest Copies to: ALLY COOL MD ; Problem Qualifiers (1) LGA (large for gestational age) fetus affecting management of mother: Fetus number: single or unspecified fetus Trimester: third trimester Qualified Codes: O36.63X0 - Maternal care for excessive growth, third trimester, not applicable or unspecified ALLY COOL MD Feb 02, 2018 08:05
[2018-02-02] MEDS ORDERED: DIPHTH/TETANUS/ACEL. PERTUSSIS IM ONLY ONE (09:00)
[2018-02-02] MEDS ORDERED: MEASLES,MUMP,RUBELLA VAC 0.5ML SUBQ ONE (09:00)
[2018-02-02] MEDS: DOCUSATE CALCIUM 240 MG CAP PO SCH (09:21)
[2018-02-02 11:30] VITALS: BP 104/61
[2018-02-02 14:15] VITALS: BP 124/73
--- NOTE | 2018-02-03 11:06 | Anesthesia Post Eval Note ---
Anesthesia Post Eval Note Pt able to participate in Eval: Yes Cardiovascular Status: Satisfactory Respiratory Status: Satisfactory Pain Managment: Satisfactory PO Nausea/Vomiting: Satisfactory Temperature Management: Satisfactory Mental Status: Satisfactory Post-Op Hydration Status: Satisfactory Anesthesia Type: LEB Anesthesia Tolerance: patient ambulating. VSS. No issues noted by patient besides slight back pain at catheter site. BRAYDEN SALDANA CHANGE OF ADDRESS CLERK Feb 03, 2018 11:06
== END 2018-02-02 19:50 | disposition home or self-care (01) | DRG 775 ==
LOC: OB 05:24
PROVIDERS: ADMIT Obstetrics & Gynecology; ATTEND Obstetrics & Gynecology
PROC: 10E0XZZ Delivery of Products of Conception, External Approach (ICD-10-PCS; principal; 2018-02-01)
PROC: 0KQM0ZZ Repair Perineum Muscle, Open Approach (ICD-10-PCS; 2018-02-01)
PROC: 10907ZC Drainage of Amniotic Fluid, Therapeutic from Products of Conception, Via Natural or Artificial Opening (ICD-10-PCS; 2018-02-01)
PROC: 4A0H74Z Measurement of Products of Conception, Cardiac Electrical Activity, Via Natural or Artificial Opening (ICD-10-PCS; 2018-02-01)
PROC: 3E033VJ Introduction of Other Hormone into Peripheral Vein, Percutaneous Approach (ICD-10-PCS; 2018-02-01)
DX: O13.4 Gestational [pregnancy-induced] hypertension without significant proteinuria, complicating childbirth (principal); O99.824 Streptococcus B carrier state complicating childbirth; O36.63X0 Maternal care for excessive fetal growth, third trimester, not applicable or unspecified; O70.1 Second degree perineal laceration during delivery; O76 Abnormality in fetal heart rate and rhythm complicating labor and delivery; Z37.0 Single live birth; Z3A.38 38 weeks gestation of pregnancy
CPT/HCPCS: 36415; 81001; 82040; 82247; 82310; 82374; 82435; 82565; 82570; 82947; 83615; 84075; 84132; 84155; 84156; 84295; 84450; 84460; 84520; 84550; 85025; 85027; 86703; 86850; 86900; 86901; J2540; J2590; J3010; J7120; S0020